=== PATIENT | female | born 1995 | race American Indian/Alaskan Native ===

== ENCOUNTER 2018-09-06 21:16 | Outpatient (CLI) | payer OTHER ==
[2018-09-06 22:48] VITALS: BP 124/69
== END 2018-09-06 22:58 | disposition home or self-care (01) ==
LOC: TRG 21:16
PROVIDERS: ATTEND Obstetrics & Gynecology
DX: O62.8 Other abnormalities of forces of labor (principal); O26.893 Other specified pregnancy related conditions, third trimester; R10.2 Pelvic and perineal pain; Z3A.36 36 weeks gestation of pregnancy
CPT/HCPCS: 59025

== ENCOUNTER 2018-09-11 22:22 | Outpatient (CLI) | payer OTHER ==
[2018-09-11 22:50] VITALS: BP 124/71
[2018-09-12] MEDS ORDERED: ZOFRAN ONE (00:32)
[2018-09-12] MEDS ORDERED: NEO SYNEPHRINE/NS Syringe(OR USE) IV ONE (00:32)
--- NOTE | 2018-09-12 00:56 | Ultrasound Report ---
PROCEDURE: Ultrasound biophysical profile without nonstress test. TECHNIQUE: Sonographic evaluation for breathing, movement, tone, and amniotic flui d volume was performed. HISTORY: Evaluate well-being. COMPARISONS: None. FINDINGS: FETUS Amniotic fluid volume 2. breathin. movement: 2. tone: 2. Score: 8 of 8. IMPRESSION: Normal biophysical profile. This document is electronically signed by Everette Darling MD., September 12 2018 12:54:05 AM ET
--- NOTE | 2018-09-12 00:59 | Ultrasound Report ---
PROCEDURE: Limited obstetrical ultrasound. TECHNIQUE: Real-time limited sonographic examination was performed for evaluation of each fetus with image documentation (1 or more fetuses). HISTORY: labor. Evaluate amniotic fluid volume. COMPARISONS: None. FINDINGS: There is a single viable fetus in cephalic presentation. Cardiac activity is documented at 149 bpm. T he amniotic fluid volume appears normal. The amniotic fluid index measures 10.3 cm. The placenta is r ight lateral in location with no evidence of placenta previa. IMPRESSION: Viable fetus in cephalic presentation. Normal amniotic fluid volume. This document is electronically signed by Everette Darling MD., September 12 2018 12:56:59 AM ET
== END 2018-09-12 04:00 | disposition home or self-care (01) ==
LOC: TRG 22:22
PROVIDERS: ATTEND Obstetrics & Gynecology
DX: O47.03 False labor before 37 completed weeks of gestation, third trimester (principal); Z3A.37 37 weeks gestation of pregnancy
CPT/HCPCS: 59025; 76815; 76819; J2370; J2405; J2590

== ENCOUNTER 2018-09-12 12:34 | Inpatient (IN) | payer OTHER ==
[2018-09-12] MEDS ORDERED: PITOCin/NS 20 UNIT/1000ML DRIP 20,000 MILLIUNITS/1,000 ML BAG IV ONE (12:47)
[2018-09-12] MEDS ORDERED: PITOCin/NS 20 UNIT/1000ML DRIP 20 UNITS/1,000 ML BAG IV SCH ×3 (13:00→16:23)
[2018-09-12] MEDS ORDERED: STADOL IV PRN (13:12)
[2018-09-12] MEDS ORDERED: STADOL ONE (13:13)
[2018-09-12] MEDS ORDERED: TORADOL IV ONE (13:16)
--- NOTE | 2018-09-12 13:39 | History and Physical Report ---
History of Present Illness Date of examination: 09/12/18 Date of admission: 09/12/18 12:34 Chief complaint: s/p vaginal delivery at home History of present illness: Pt is a 23 year old -[place] female BK 09/30/18 at 37w3d who presents after spontaneous vaginal delivery at home. She was seen in triage last night, observed for 4 hours with no cervical change and discharged. She reports that the contractions continued and got stronger around 11 am. Then her water broke (greenish) color and then she felt the urge to push. She delivered the at home, then called the paramedics who brought her to the unit. The placenta has not yet delivered. She has had care at [facility] since transfer into care at 23 wks complicated by EIF on ultrasound s/p MFM consultation and no follow up was required. She is GBS negative. Past History Past Medical History: no pertinent history Family/Genetic History: none Social history: no significant social history - Obstetrical History Expected Date of Delivery: 09/30/18 Actual Gestation: 37 Week(s) 3 Day(s) : 3 Para: 1 Hx # Term Pregnancies: 1 Number of Pregnancies: 0 Spontaneous Abortions: 0 Induced : 1 Number of Living Children: 1 Medications and Allergies Allergies Allergy/AdvReac Type Severity Reaction Status Date / Time No Known Allergies Allergy Verified 09/06/18 22:42 Home Medications Medication Instructions Recorded Confirmed Last Taken Type Vitamin 1 tab PO DAILY 09/06/18 09/06/18 09/04/18 History Active Meds: Active Medications Butorphanol Tartrate (Stadol) 2 mg IV Q1H PRN PRN Reason: Labor Pain Oxytocin/Sodium Chloride (Pitocin/Ns 20 Unit/1000ml Drip) 20 units in 1,000 mls @ 125 mls/hr IV DIRECT DUNG Review of Systems All systems: negative - Vital Signs Vital signs: Vital Signs Pulse BP 108 H 118/61 09/12/18 12:44 09/12/18 12:44 Temp Pulse Resp BP Pulse Ox 100 H 119/61 09/12/18 13:24 09/12/18 13:24 - Physical Exam Breasts: Positive: deferred Cardiovascular: Regular rate Lungs: Positive: Clear to auscultation Abdomen: Positive: soft (gravid ) Uterus: Positive: enlarged (gravid ) Extremities: Positive: normal Results All other labs normal. Assessment and Plan A: s/p spnotaneous vaginal delivery at 37w3d Placenta in situ GBS negative P: Admit to labor and delivery unit Deliver placenta then initiate routine care
[2018-09-12] MEDS ORDERED: BRETHINE SUB-Q PRN (13:41)
[2018-09-12] MEDS ORDERED: MINERAL OIL PO PRN (13:41)
[2018-09-12] MEDS ORDERED: BRETHINE IVP PRN (13:41)
[2018-09-12] MEDS ORDERED: NARCAN 0.4 MG/1 ML IV PRN (13:41)
[2018-09-12] MEDS ORDERED: ZOFRAN IV PRN ×2 (13:41→16:23)
--- NOTE | 2018-09-12 13:41 | Procedure Note ---
OB Delivery Note - Delivery Date of Delivery: 09/12/18 Surgeon: CINTIA SUAREZ Estimated blood loss: 100cc - Vaginal Delivery presentation: vertex Intrapartum events: precipitous labor- <3hr Delivery induction: none Delivery monitor: none Route of delivery: Delivery placenta: spontaneous Episiotomy: none Delivery laceration: none Anesthesia: none Delivery comments: Pt delivered at home. Brought to hospital by EMS with placenta in situ. Placenta delivered spontaneously. Trailing membranes teased out. Vagina and perineum explored. No lacerations. EBL 100 mL in hospital. - Infant A Infant Gender: Male (2696g (5lb 15 oz) @ 1200 pm)
[2018-09-12] MEDS ORDERED: LACTATED RINGERS 1,000 ML IV SCH (14:00)
[2018-09-12 15:06] LABS: Hematocrit 30.7 % (30.3-42.9); Hemoglobin 10.2 gm/dl (10.1-14.3); Mean Corpuscular HGB Conc 33 % (30-34); Mean Corpuscular Volume 79 fl (79-97); Platelet Count 238 K/mm3 (140-440); Red Blood Count 3.87 M/mm3 (3.65-5.03); Red Cell Distribution Width 14.2 % (13.2-15.2)
[2018-09-12] MEDS ORDERED: BENADRYL PO PRN (16:23)
[2018-09-12] MEDS ORDERED: DERMOPLAST TP PRN (16:23)
[2018-09-12] MEDS ORDERED: TUCKS PAD TP PRN (16:23)
[2018-09-12] MEDS ORDERED: SODIUM CHLORIDE FLUSH SYRINGE 10 ML IV SCH (16:23)
[2018-09-12] MEDS ORDERED: DULCOLAX PR PRN (16:23)
[2018-09-12] MEDS ORDERED: PHENERGAN PO PRN (16:23)
[2018-09-12] MEDS ORDERED: IBUPROFEN PO SCH (16:23)
[2018-09-12] MEDS ORDERED: PHENERGAN PR PRN (16:23)
[2018-09-12] MEDS ORDERED: LANSINOH TP PRN ×2 (16:23)
[2018-09-12] MEDS ORDERED: TYLENOL PO PRN (16:23)
[2018-09-12] MEDS ORDERED: MILK OF MAGNESIA PO PRN (16:23)
[2018-09-12] MEDS: IBUPROFEN PO SCH (19:28)
[2018-09-12] MEDS: NORCO 5/325 PO PRN (20:51)
[2018-09-13] MEDS: IBUPROFEN PO SCH ×3 (01:12→17:35)
[2018-09-13] MEDS: NORCO 5/325 PO PRN ×2 (02:47→22:12)
[2018-09-13] MEDS ORDERED: BOOSTRIX IM ONE (06:00)
[2018-09-13 06:04] LABS: Hematocrit 28.3 % (30.3-42.9); Hemoglobin 9.6 gm/dl (10.1-14.3)
--- NOTE | 2018-09-13 08:25 | Progress Note ---
Assessment and Plan A/P PPD1 s/p doing well routine care d/c home tomorrow Subjective - Subjective Date of service: 09/13/18 Principal diagnosis: at home Patient reports: voiding normally, pain well controlled, flatus, ambulating normally : doing well Objective - Vital Signs Latest vital signs: Vital Signs Temp Pulse Resp BP BP Pulse Ox 09/13/18 02:12 97.6 F 75 18 105/53 98 09/12/18 20:09 98.2 F 20 101/72 09/12/18 17:16 98.4 F 09/12/18 15:26 98.1 F 86 16 107/62 97 09/12/18 14:24 93 H 126/60 09/12/18 14:15 98.4 F 09/12/18 14:09 89 110/57 09/12/18 13:55 94 H 114/61 09/12/18 13:39 93 H 112/55 09/12/18 13:24 100 H 119/61 09/12/18 13:09 99 H 123/63 09/12/18 12:44 108 H 118/61 Intake and Output 09/12/18 09/13/18 09/13/18 23:59 07:59 15:59 Intake Total 480 120 Output Total 1250 Balance -770 120 Intake: Oral 120 120 Intake, Free Water 360 Output: Urine 1250 Void 1250 Other: Total, Intake Amount 120 120 Total, Output Amount 650 # Voids Void 1 - Exam Breasts: Present: normal Cardiovascular: Present: Regular rate, Normal S1 Lungs: Present: Clear to auscultation, Normal air movement Abdomen: Present: normal appearance, soft, normal bowel sounds. Absent: distention, tenderness, guarding Uterus: Present: normal, firm, fundal height below umbilicus. Absent: bogginess, tenderness Extremities: Present: normal Deep Tendon Reflex Grade: Normal +2 Incision: Present: normal - Labs Labs: Abnormal lab results 09/12/18 09/13/18 Range/Units 14:03 05:54 WBC 13.1 H (4.5-11.0) K/mm3 Hgb 9.6 L (10.1-14.3) gm/dl Hct 28.3 L (30.3-42.9) % MCH 26 L (28-32) pg
--- NOTE | 2018-09-13 08:28 | Discharge Summary ---
Providers - Providers Date of Admission: 09/12/18 12:34 Date of discharge: 09/13/18 Attending physician: CINTIA SUAREZ Primary care physician: THAO HERNANDEZ MD Hospitalization Reason for admission: active labor Delivery: Episiotomy: none Laceration: none Incision: normal Other procedures: none baby: male Hospital course: Patient was a walkin and delivered at home. Unremarkable hospital course. Iron for anemia . Discharged home PPD 2 Condition at discharge: Good Disposition: DC- TO HOME OR SELFCARE Plan - Discharge Medications Prescriptions: Ferrous Sulfate [Feosol 325 MG tab] 325 mg PO BID #30 tablet Ibuprofen [Motrin] 600 mg PO Q8H PRN #30 tablet PRN Reason: Pain oxyCODONE /ACETAMINOPHEN [Percocet 5/325] 1 tab PO Q6HR PRN #20 tablet PRN Reason: Pain - Provider Discharge Summary Additional instructions: [] Smoking cessation referral if applicable(refer to patient education folder for contact #) [] Refer to [facility] Booklet Call your doctor immediately for: * Fever > 100.5 * Heavy vaginal bleeding ( >1 pad per hour) * Severe persistent headache * Shortness of breath * Reddened, hot, painful area to leg or breast * Drainage or odor from incision. * Keep incision clean and dry at all times and follow doctor's instructions regarding bathing/showering - Follow up plan Follow up: THAO HERNANDEZ MD [Primary Care Provider] - 7 Days
[2018-09-13] MEDS: FEOSOL PO SCH ×2 (11:52→22:09)
[2018-09-13] MEDS ORDERED: M-M-R II VACCINE SUB-Q ONE (13:43)
[2018-09-14] MEDS: IBUPROFEN PO SCH ×3 (00:06→10:58)
[2018-09-14] MEDS: FEOSOL PO SCH (11:00)
[2018-09-14 15:34] VITALS: BP 131/88
== END 2018-09-14 15:51 | disposition home or self-care (01) | DRG 775 ==
LOC: LD 12:34 → OB 15:56
PROVIDERS: ADMIT Obstetrics & Gynecology; ATTEND Obstetrics & Gynecology
PROC: 10E0XZZ Delivery of Products of Conception, External Approach (ICD-10-PCS; principal; 2018-09-12)
PROC: 3E0234Z Introduction of Serum, Toxoid and Vaccine into Muscle, Percutaneous Approach (ICD-10-PCS; 2018-09-13)
DX: O62.3 Precipitate labor (principal); O99.02 Anemia complicating childbirth; D64.9 Anemia, unspecified; Z3A.37 37 weeks gestation of pregnancy; Z37.0 Single live birth; Z23 Encounter for immunization
CPT/HCPCS: 36415; 59025; 76815; 76819; 85014; 85018; 85027; 86850; 86900; 86901; 88307; G0378; J0595; J1885; J2370; J2405; J2590